=== PATIENT | male | born 1960 | race Caucasian/White ===

== ENCOUNTER → 2016-09-16 | Outpatient (CLI) | payer BC, OTHER | LOC: HYPER 06:55 | DX: S11.89XD Other open wound of other specified part of neck, subsequent encounter (principal); L59.8 Other specified disorders of the skin and subcutaneous tissue related to radiation; B37.0 Candidal stomatitis; E11.9 Type 2 diabetes mellitus without complications; T20.07XA Burn of unspecified degree of neck, initial encounter; T31.0 Burns involving less than 10% of body surface; X08.8XXA Exposure to other specified smoke, fire and flames, initial encounter; Y93.89 Activity, other specified; Y92.89 Other specified places as the place of occurrence of the external cause; Y99.8 Other external cause status; X58.XXXD Exposure to other specified factors, subsequent encounter; Y84.2 Radiological procedure and radiotherapy as the cause of abnormal reaction of the patient, or of later complication, without mention of misadventure at the time of the procedure; Z87.891 Personal history of nicotine dependence; Z72.89 Other problems related to lifestyle ==